=== PATIENT | female | born 1935 | race Caucasian/White ===

== ENCOUNTER 2020-11-05 19:40 | Inpatient (IN) | payer MEDICARE, OTHER ==
[~2020-11-05] VITALS: Ht 154.9 cm; Wt 70.3 kg
[~2020-11-05 19:40] MED LIST: ACETAMINOPHEN325 M1 PO; CALCIUM; ESTER-C 500 MG1 EAC1; FISHOIL; GLUCOSAMINE SU500 MG PO; RED YEAST RICE600 MG; VALIUM5 MG PO; VITAMIN D10000 UNIT PO
[2020-11-05 19:48] VITALS: BP 165/95
[2020-11-05] MEDS ORDERED: TRAMADOL 50 MG50 MG PO (19:55)
[2020-11-05] MEDS ORDERED: HYDROCORTISONE TAB (19:55)
[2020-11-05 20:19] LABS: ABSOLUTE EOSINOPHILS 0.1 thou/uL (0.0-0.7); ABSOLUTE LYMPHOCYTES 1.8 thou/uL (0.8-5.3); ABSOLUTE MONOCYTES 0.4 thou/uL (0.0-1.2); ABSOLUTE NEUTROPHILS 3.7 thou/uL (1.6-8.1); BASOPHILS 0.2 %; EOSINOPHILS 1.8 %; HEMATOCRIT 37.6 % (37.0-47.0); HEMOGLOBIN 12.4 gm/dL (12.0-15.0); LYMPHOCYTES 30.7 %; MCH 26.5 pg (26.0-34.0); MCHC 32.9 g/dL (28.0-37.0); MCV 80.4 fL (80.0-100.0); MONOCYTES 6.5 %; NUCLEATED RBCS 0 /100WBC; PLATELET COUNT* 252 thou/uL (150-400); POLYS 60.8 %; RBC 4.68 mil/uL (4.20-5.00); RDW-CV 16.6 % (10.5-14.5)
[2020-11-05 20:24] LABS: CALCIUM 9.5 mg/dL (8.5-10.1); CREATININE 0.9 mg/dL (0.6-1.3)
[2020-11-05 21:16] LABS: URINE BILIRUBIN NEGATIVE (Negative); URINE BLOOD NEGATIVE (Negative); URINE COLOR YELLOW; URINE GLUCOSE-RANDOM NEGATIVE (Negative); URINE KETONES NEGATIVE (Negative); URINE LEUKOCYTES-REFLEX 1+ (Negative); URINE NITRITE-REFLEX NEGATIVE (Negative); URINE PROTEIN NEGATIVE (Negative); URINE SPECIFIC GRAVITY 1.025 (1.005-1.030); URINE UROBILINOGEN 0.2 E.U./dl (0.2-1.0)
[2020-11-05 21:30] LABS: URINE CLARITY HAZY
[2020-11-05 21:31] LABS: SQUAMOUS 4-10 Moderate /LPF (0-3)
[2020-11-05 21:32] LABS: BACTERIA-REFLEX None Seen /HPF (None Seen); CASTS None Seen /LPF (None Seen); CRYSTALS None Seen /LPF (None Seen); URINE RBC 0-2 Rare /HPF (0-2); URINE WBC-REFLEX 0-5 Rare /HPF (0-5)
[2020-11-06 01:03] VITALS: BP 155/77
[2020-11-06 01:10] VITALS: BP 163/76
[2020-11-06 08:05] VITALS: BP 138/89
[2020-11-06 16:00] VITALS: BP 129/56
[2020-11-06 22:15] VITALS: BP 123/66
[2020-11-07 04:35] LABS: ABSOLUTE LYMPHOCYTES 1.4 thou/uL (0.8-5.3); ABSOLUTE MONOCYTES 0.5 thou/uL (0.0-1.2); ABSOLUTE NEUTROPHILS 5.5 thou/uL (1.6-8.1); BASOPHILS 0.4 %; EOSINOPHILS 0.2 %; HEMATOCRIT 35.3 % (37.0-47.0); HEMOGLOBIN 11.5 gm/dL (12.0-15.0); LYMPHOCYTES 18.9 %; MCH 26.4 pg (26.0-34.0); MCHC 32.7 g/dL (28.0-37.0); MCV 80.8 fL (80.0-100.0); MONOCYTES 7.1 %; MPV 7.8 fl. (7.2-11.1); NUCLEATED RBCS 0 /100WBC; PLATELET COUNT* 208 thou/uL (150-400); POLYS 73.4 %; RBC 4.37 mil/uL (4.20-5.00); RDW-CV 16.5 % (10.5-14.5); WBC 7.5 thou/uL (4.0-11.0)
[2020-11-07 05:04] LABS: CALCIUM 8.4 mg/dL (8.5-10.1); CREATININE 0.8 mg/dL (0.6-1.3); POTASSIUM 3.5 mmol/L (3.5-5.1)
[2020-11-07 09:38] VITALS: BP 135/63
[2020-11-07 16:07] VITALS: BP 133/70
[2020-11-07 21:30] VITALS: BP 151/81
[2020-11-08 04:12] LABS: CALCIUM 8.3 mg/dL (8.5-10.1); CREATININE 0.8 mg/dL (0.6-1.3); POTASSIUM 3.6 mmol/L (3.5-5.1)
[2020-11-08 04:19] LABS: ABSOLUTE LYMPHOCYTES 1.9 thou/uL (0.8-5.3); ABSOLUTE MONOCYTES 0.5 thou/uL (0.0-1.2); BASOPHILS 0.7 %; EOSINOPHILS 0.7 %; HEMATOCRIT 34.8 % (37.0-47.0); HEMOGLOBIN 11.2 gm/dL (12.0-15.0); LYMPHOCYTES 29.3 %; MCH 25.9 pg (26.0-34.0); MCHC 32.1 g/dL (28.0-37.0); MCV 80.8 fL (80.0-100.0); MONOCYTES 7.4 %; MPV 8.2 fl. (7.2-11.1); NUCLEATED RBCS 0 /100WBC; PLATELET COUNT* 205 thou/uL (150-400); POLYS 61.9 %; RBC 4.31 mil/uL (4.20-5.00); RDW-CV 16.2 % (10.5-14.5); WBC 6.4 thou/uL (4.0-11.0)
[2020-11-08 07:51] VITALS: BP 154/101
[2020-11-08] MEDS ORDERED: LORAZEPAM 0.50.5 MG PO (11:50)
[2020-11-08] MEDS ORDERED: MIRALAX17 GM PO (11:50)
[2020-11-08] MEDS ORDERED: FLEXERIL PO (11:50)
[2020-11-08] MEDS ORDERED: SENEXON-S 50-81 EACH PO (11:50)
[2020-11-08] MEDS ORDERED: TRAMADOL 50 MG50 MG PO (11:50)
[2020-11-08 15:05] VITALS: BP 154/101
[2020-11-08 16:00] VITALS: BP 143/85
[2020-11-08 17:00] VITALS: BP 154/101
[2020-11-08 17:51] VITALS: BP 154/101
== END 2020-11-08 17:45 | disposition home health service (06) | DRG 552 ==
LOC: M.ERS 19:40 → M.TBA-ER 22:51 → M.ORTHSURG 11-06 01:10
PROVIDERS: Emergency Medicine; Internal Medicine; Pediatrics; ADMIT Internal Medicine; ATTEND Internal Medicine
DX: M54.16 Radiculopathy, lumbar region (principal); E78.00 Pure hypercholesterolemia, unspecified; Z20.822 Contact with and (suspected) exposure to COVID-19; Z90.49 Acquired absence of other specified parts of digestive tract; Z90.710 Acquired absence of both cervix and uterus; Z79.899 Other long term (current) drug therapy; Z88.1 Allergy status to other antibiotic agents